=== PATIENT | female | born 1985 | race Caucasian/White ===

== ENCOUNTER 2016-10-07 13:51 | Day surgery (SDC) | payer OTHER ==
[~2016-10-07] VITALS: Ht 175.3 cm; Wt 68.0 kg
[2016-10-07] MEDS ORDERED: SILVER NITRATE STICK TP ONE (14:05)
[2016-10-07] MEDS ORDERED: MISOPROSTOL 200 MCG TABLET ONE (14:05)
[2016-10-07] MEDS ORDERED: METHYLERGONOVINE 0.2 MG/ML IM ONE (14:05)
[2016-10-07] MEDS ORDERED: LACTATED RINGERS 1,000 ML IV SCH (14:05)
[2016-10-07] MEDS ORDERED: OXYTOCIN 10 UNITS/ML, 1ML ONE (14:05)
[2016-10-07] MEDS ORDERED: NONE PER PT (14:08)
[2016-10-07 14:09] VITALS: BP 109/63
[2016-10-07] MEDS ORDERED: FENTANYL PF 100 MCG/2ML ONE (14:31)
[2016-10-07] MEDS ORDERED: MIDAZOLAM 1 MG/ML, 2ML ONE (14:32)
[2016-10-07] MEDS ORDERED: ROCURONIUM 10 MG/ML ONE (14:35)
[2016-10-07] MEDS ORDERED: SUCCINYLCHOLINE 20 MG/ML, 10ML ONE (14:35)
[2016-10-07] MEDS ORDERED: PROPOFOL 10 MG/ML, 20ML ONE (14:35)
[2016-10-07] MEDS ORDERED: DEXAMETHASONE 4 MG/ML, 1ML ONE (14:35)
[2016-10-07] MEDS ORDERED: KETOROLAC 30 MG/1 ML ONE (14:35)
[2016-10-07] MEDS ORDERED: NEOSTIGMINE 1 MG/ML, 10ML ONE (14:35)
[2016-10-07] MEDS ORDERED: ONDANSETRON 2MG/ML, 2ML ONE (14:35)
[2016-10-07] MEDS ORDERED: GLYCOPYRROLATE 0.2MG/1ML ONE (14:35)
[2016-10-07] MEDS ORDERED: PROMETHAZINE 25 MG/ML, 1ML IV PRN (15:00)
[2016-10-07] MEDS ORDERED: hydrALAzine 20 MG/ML, 1ML IV PRN (15:00)
[2016-10-07] MEDS ORDERED: FENTANYL PF 100 MCG/2ML IV PRN (15:00)
[2016-10-07] MEDS ORDERED: METOPROLOL 1 MG/ML, 5ML IV PRN (15:00)
[2016-10-07] MEDS ORDERED: MIDAZOLAM 1 MG/ML, 2ML IV PRN (15:00)
[2016-10-07] MEDS ORDERED: ONDANSETRON 2MG/ML, 2ML IVPush PRN (15:00)
[2016-10-07] MEDS ORDERED: LABETALOL 5MG/ML, 20ML IV PRN (15:00)
[2016-10-07] MEDS ORDERED: MEPERIDINE/PF 25MG/0.5ML IVPush PRN (15:00)
[2016-10-07] MEDS ORDERED: ACETAMINOPHEN 325 MG TABLET PO PRN (15:00)
[2016-10-07] MEDS ORDERED: EPHEDRINE 50 MG/ML, 1ML IVPush PRN (15:00)
[2016-10-07] MEDS ORDERED: ALBUTEROL SULFATE 2.5 MG/3 ML NPPB PRN (15:00)
[2016-10-07] MEDS ORDERED: HYDROmorphone 1 MG/ML, 1ML IV PRN (15:00)
[2016-10-07] MEDS ORDERED: OXYcodone 5 MG/5 ML ORAL.SOL UDC PO PRN (15:00)
[2016-10-07] MEDS ORDERED: ACETAMINOPHEN 650 MG/20.3 ML UDC ONE (15:33)
[2016-10-07] MEDS ORDERED: OXYcodone 5 MG/5 ML ORAL.SOL UDC ONE (15:34)
== END 2016-10-07 17:10 | disposition home or self-care (01) ==
LOC: OUT 13:51
PROVIDERS: ATTEND Obstetrics & Gynecology
DX: O02.1 Missed abortion (principal); Z3A.01 Less than 8 weeks gestation of pregnancy
CPT/HCPCS: 36415; 59820; 85025; 86850; 86900; 88305; J0330; J1100; J1885; J2250; J2405; J2704; J2710; J3010; J3490; J2210; J2590

== ENCOUNTER 2020-06-02 00:32 | Emergency (ER) | payer OTHER ==
[~2020-06-02] VITALS: Ht 175.3 cm; Wt 70.0 kg
[~2020-06-02 00:32] MED LIST: DOCU-131 PO; IBUP-1222 PO; NONE PER PT; OXYC1TAB14 PO
[2020-06-02 01:03] LABS: BASOPHILS % (AUTO) 1 % (0-1); EOSINOPHILS % (AUTO) 3 % (1-7); LYMPHOCYTES % (AUTO) 38 % (22-44); MEAN CORPUSCULAR HEMOGLOBIN 30.8 pg (27.0-34.8); MEAN CORPUSCULAR HGB CONC 33.9 g/dL (32.4-35.8); MEAN PLATELET VOLUME 7.4 fL (7.4-10.4); MONOCYTES % (AUTO) 8 % (2-9); NEUTROPHILS % (AUTO) 50 % (42-75); PLATELET COUNT 318 x10^3/uL (130-400); RED BLOOD COUNT 4.44 x10^6/uL (3.82-5.3); RED CELL DISTRIBUTION WIDTH 13.7 % (9.6-15.2)
[2020-06-02 01:09] LABS: ALBUMIN 3.8 g/dL (3.4-5.0); ANION GAP 11 mmol/L (5-15); CALCIUM 8.6 mg/dL (8.5-10.1); CHLORIDE 104 mmol/L (98-107); CREATININE 0.81 mg/dL (0.55-1.02)
[2020-06-02 01:12] LABS: MD NO
[2020-06-02 01:21] LABS: MICROSCOPIC INDICATED
[2020-06-02 01:23] VITALS: BP 112/67
== END 2020-06-02 02:11 | disposition home or self-care (01) ==
LOC: ED 02:01
DX: O20.0 Threatened abortion (principal); Z3A.11 11 weeks gestation of pregnancy
CPT/HCPCS: 36415; 76801; 80048; 81001; 82040; 84702; 85025; 86901; 87086; 99284